=== PATIENT | female | born 1985 | race Caucasian/White ===

== ENCOUNTER 2020-07-29 19:28 | Emergency (ER) | payer OTHER ==
[2020-07-30 00:58] LABS: BASOPHIL 0.2 % (0-2); EOSINOPHIL 0.1 % (0-5); HCT 38.9 % (37.0-47.0); HGB 13.2 g/dl (12.5-16.0); LYMPHOCYTE 10.8 % (15-48); MCH 29.7 pg (25.0-31.0); MCHC 33.9 g/dL (32.0-36.0); MCV 87.4 fL (78.0-100.0); MONOCYTE 8.4 % (0-12); MPV 9.7 fL (6.0-9.5); NEUTROPHIL 80.1 % (41-80); NRBC 0; PLT 282 K/uL (150-400); RBC 4.45 M/uL (4.20-5.40); RDW 11.7 % (11.5-14.0); WBC 16.9 K/uL (4.0-10.5)
[2020-07-30 01:14] LABS: ALBUMIN 3.5 g/dL (3.4-5.0); BILIRUBIN - TOTAL 0.5 mg/dL (0.2-1.0); BUN/CREAT RATIO (CALC) 5.9 RATIO; CREATININE 0.68 mg/dL (0.51-0.95); GLOBULIN (CALCULATION) 3.9 g/dL; POTASSIUM 3.9 mmol/L (3.5-5.1); TOTAL PROTEIN 7.4 g/dL (6.4-8.2)
[2020-07-30 01:19] LABS: LACTIC ACID 0.9 mmol/L (0.4-1.9)
[2020-07-30] MEDS ORDERED: CLINDAMYCIN 15150 MG PO (03:08)
[2020-07-30] MEDS ORDERED: MAGICMW SSP (03:08)
[2020-07-30] MEDS ORDERED: MOTRIN600 MG PO (03:08)
== END 2020-07-30 03:30 | disposition home or self-care (01) ==
LOC: FER 19:28
PROVIDERS: Emergency Medicine Emergency Medical Services
DX: J03.90 Acute tonsillitis, unspecified (principal)
CPT/HCPCS: 36415; 70491; 80053; 83605; 85025; 87880; J0561; J1100; J1885; J2270; J7030; Q9967